=== PATIENT | male | born 1995 | race Caucasian/White ===

== ENCOUNTER 2021-04-25 09:29 | Emergency (ER) | payer BC ==
[2021-04-25] MEDS ORDERED: Sodium Chloride 0.9% 10 ML Syringe FLUSH PRN (10:10)
[2021-04-25] MEDS ORDERED: Metoclopramide 10 MG/2 ML SDV IVPUSH ONE (10:11)
[2021-04-25] MEDS ORDERED: HYDROmorphone 1 MG/ML Syringe IVPUSH ONE (10:11)
--- NOTE | 2021-04-25 10:15 | EDM.PDOC ---
ED HPI GENERAL MEDICAL PROBLEM - General Chief Complaint: Back Pain or Injury Stated Complaint: BACK PAIN Time Seen by Provider: 04/25/21 10:10 Source of Information: Reports: Patient History Limitations: Reports: No Limitations - History of Present Illness INITIAL COMMENTS - FREE TEXT/NARRATIVE: 25-year-old male presents to the ED for evaluation of acute onset of severe low back pain. Patient states he was working out at the gym doing bent over rolls with a barbell when he developed sudden onset of severe pain in his lower back. Now any movement causes severe spasm and severe pain. He is currently lying in the gurney on the opposite direction in the left lateral decubitus position. No previous history of low back injury. No pain rating down his buttocks rating to the lower extremities. No feeling of loss of control of bowel or bladder function. He has not taken anything for pain. He had his drive him to the hospital. Onset: Today, Sudden Onset Date: 04/25/21 Onset Time: 09:05 Duration: Minutes:, Constant Location: Reports: Back Quality: Reports: Ache (Severe diffuse low back pain. Cannot localize to one side being any worse than the other.), Sharp, Stabbing, Other Severity: Severe (Strong spastic component to the pain with any kind of movement. 910 with movement.) Improves with: Reports: Rest ( 2 out of 10 if he lies perfectly still.) Worsens with: Reports: Movement Context: Reports: Exercise (Injury occurred while doing bent over). 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) (None.) Back Pain Score (Numeric/FACES): 10 - Related Data Allergies Allergy/AdvReac Type Severity Reaction Status Date / Time No Known Allergies Allergy Verified 04/25/21 09:38 Home Meds: Home Meds Acetaminophen/oxyCODONE [Percocet 325-5 MG] 1 - 2 each PO Q4H PRN #24 tab 04/25/21 [Rx] Cyclobenzaprine [Flexeril] 10 mg PO TID PRN #12 tab 04/25/21 [Rx] Diclofenac Sodium [Voltaren] 75 mg PO BIDMEALS #16 tab.cr 04/25/21 [Rx] Multivitamin 1 each PO DAILY 04/25/21 [History] predniSONE [Prednisone] 20 mg PO BID #10 tablet 04/25/21 [Rx] Past Medical History - Past Surgical History GI Surgical History: Reports: Appendectomy Social & Family History - Tobacco Use Tobacco Use Status *Q: Never Tobacco User - Caffeine Use Caffeine Use: Reports: Coffee - Recreational Drug Use Recreational Drug Use: No - Living Situation & Occupation Living situation: Reports: Occupation: Employed ED ROS GENERAL - Review of Systems Review Of Systems: See Below Constitutional: Denies: Fever, Chills, Malaise, Weakness, Fatigue, Decreased Appetite, Weight Loss HEENT: Reports: No Symptoms Respiratory: Reports: No Symptoms Cardiovascular: Reports: No Symptoms Endocrine: Reports: No Symptoms GI/Abdominal: Reports: No Symptoms : Reports: No Symptoms Musculoskeletal: Reports: No Symptoms Skin: Reports: No Symptoms Neurological: Reports: No Symptoms Psychiatric: Reports: No Symptoms ED EXAM,LOWER BACK PAIN/INJURY - Physical Exam Exam: See Below Exam Limited By: No Limitations General Appearance: Alert, WD/WN, Moderate Distress, Other (Patient has to lie in the left lateral decubitus position on the gurney upside down. Vital signs show temperature 36.2. Heart rate 83 and sinus. Respiratory to 16 with O2 sats of 98% on room air. BP is 119/63.) Respiratory/Chest: No Respiratory Distress, Lungs Clear, Normal Breath Sounds, No Accessory Muscle Use Cardiovascular: Normal Peripheral Pulses, Regular Rate, Rhythm, No Edema, No Gallop, No Murmur, No Rub GI/Abdominal: Normal Bowel Sounds, Soft, Non-Tender, No Organomegaly, No Mass, Pelvis Stable, Other (Firm abdominal wall due to being well muscled.) Back Exam: Muscle Spasm (Paraspinal muscle spasm appreciated bilaterally lumbar spine worse on the right side as compared to the left. On the right side it does travel up to thoracic 10 level.), Paraspinal Tenderness (Worse over lumbar 3 to lumbar 5 bilaterally. Mild tenderness in the left sacroiliac joint as well.), Other Extremities: Normal Inspection, Normal Range of Motion, Non-Tender, No Pedal Ed kate Neurological: Alert, Normal Mood/Affect, Normal Dorsiflexion, CN II-XII Intact, Normal Gait, Normal Reflexes, No Motor/Sensory Deficits, Oriented x 3 Psychiatric: Normal Affect, Normal Mood Skin Exam: Warm, Dry, Intact, Normal Color, No Rash Course - Vital Signs Last Recorded V/S: Last Vital Signs Temp 36.2 C 04/25/21 09:36 Pulse 83 04/25/21 09:36 Resp 16 04/25/21 09:36 BP 119/63 04/25/21 09:36 Pulse Ox 98 04/25/21 09:36 - Orders/Labs/Meds Orders: Active Orders 24 hr Category Date Time Status Peripheral IV Care [RC] . DIRECTED Care 04/25/21 10:10 Active Lumbar Spine wo Cont [CT] Stat Exams 04/25/21 10:47 Taken Ketorolac [Toradol] Med 04/25/21 11:45 Active 30 mg IVPUSH ONETIME Sodium Chloride 0.9% [Saline Flush] Med 04/25/21 10:10 Active 10 ml FLUSH ASDIRECTED PRN Peripheral IV Insertion Adult [OM.PC] Stat Oth 04/25/21 10:10 Ordered Medication Orders Ketorolac Tromethamine (Ketorolac 30 Mg/Ml Sdv) 30 mg IVPUSH ONETIME SOTERO Last Admin: 04/25/21 11:42 Dose: 30 mg Documented by: CAIT Sodium Chloride (Sodium Chloride 0.9% 10 Ml Syringe) 10 ml FLUSH ASDIRECTED PRN PRN Reason: Keep Vein Open Last Admin: 04/25/21 10:23 Dose: 10 ml Documented by: CLARI Meds: Medications Generic Name Dose Route Start Last Admin Trade Name Freq PRN Reason Stop Dose Admin Ketorolac Tromethamine 30 mg 04/25/21 11:45 04/25/21 11:42 Ketorolac 30 Mg/Ml Sdv IVPUSH 30 mg ONETIME SOTERO Administration Sodium Chloride 10 ml 04/25/21 10:10 04/25/21 10:23 Sodium Chloride 0.9% 10 Ml Syringe FLUSH 10 ml ASDIRECTED PRN Administration Keep Vein Open Discontinued Medications Generic Name Dose Route Start Last Admin Trade Name Freq PRN Reason Stop Dose Admin Diazepam 5 mg 04/25/21 10:10 04/25/21 10:24 Diazepam 10 Mg/2 Ml Syringe IVPUSH 04/25/21 10:11 5 mg ONETIME ONE Administration Hydromorphone HCl 1 mg 04/25/21 10:11 04/25/21 10:23 Hydromorphone 1 Mg/Ml Syringe IVPUSH 04/25/21 10:12 1 mg ONETIME ONE Administration Hydromorphone HCl 0.5 mg 04/25/21 11:31 04/25/21 11:39 Hydromorphone 0.5 Mg/0.5 Ml Syringe IVPUSH 04/25/21 11:32 0.5 mg ONETIME ONE Administration Ketorolac Tromethamine Confirm 04/25/21 11:47 04/25/21 13:23 Ketorolac 30 Mg/Ml Sdv Administered 04/25/21 11:48 Not Given Dose 30 mg .ROUTE .STK-MED ONE Methylprednisolone Sodium Succinate 125 mg 04/25/21 11:37 04/25/21 11:42 Methylprednisolone Sodium Succinate 125 Mg/2 Ml Sdv IVPUSH 04/25/21 11:38 125 mg ONETIME ONE Administration Metoclopramide HCl 10 mg 04/25/21 10:11 04/25/21 10:22 Metoclopramide 10 Mg/2 Ml Sdv IVPUSH 04/25/21 10:12 10 mg ONETIME ONE Administration - Radiology Interpretation Free Text/Narrative:: 25-year-old male presents to the ED with acute onset of severe low back pain that occurred while doing bent over rows with a barbell at the gym. He came almost immediately to the hospital with his driving him due to severe pain in his lower back. States it is so bad that he cannot make any movement at all without severe stabbing pain that would drop him to the floor. No past history of back problems. No radiculopathy into either lower extremity at this time. Plan pain management. IV Dilaudid 1 mg with Valium 5 mg IV and Reglan 10 mg IV. Plan will be to have lumbar spine x-rays carried out when she can lie comfortably on the gurney. - Re-Assessments/Exams Free Text/Narrative Re-Assessment/Exam: 04/25/21 10:48 Patient has been able to lay on the gurney in a normal fashion. States as long as he moves his pretty well pain-free at this time. He is fairly drowsy from the effects of medication. He believes he can tolerate imaging of his lower back at this time. He will have CT scan of his lower back performed without contrast 04/25/21 11:36 CT scan of the lumbar spine has been completed without contrast. It reveals no significant disc protrusion or spinal canal stenosis or significant neuroforaminal stenosis at any of the lumbar vertebrae levels. Patient was so advised. He is likely going to be at least a week till he can return to work. I will give him a note in this regard. He still has significant pain even transferring from the bed to the CT scanner. We will give him Toradol 30 mg IV with Dilaudid 0.5 mg IV for further pain relief. Also will give him a dose of Solu-Medrol 125 mg IV. The plan will be to discharge him home on Percocet tabs 5/325 mg strength 1 or 2 every 4-6 hours necessary for pain relief. Prednisone 20 mg twice daily for 5 days with breakfast and supper. Voltaren 75 mg by mouth twice daily for the next 8 days. Flexeril 10 mg every 8 hours as needed for muscle spasm relief. Advise follow-up with physician later this week i.e. Monday to make sure he is good enough to return to work by Monday next week. Departure - Departure Time of Disposition: 12:02 Disposition: Home, Self-Care 01 Condition: Fair Clinical Impression: Acute myofascial strain of lumbar region Qualifiers: Encounter type: initial encounter Qualified Code(s): S39.012A - Strain of muscle, fascia and tendon of lower back, initial encounter - Discharge Information *PRESCRIPTION DRUG MONITORING PROGRAM REVIEWED*: Not Applicable *COPY OF PRESCRIPTION DRUG MONITORING REPORT IN PATIENT HARSH: Not Applicable Prescriptions: Cyclobenzaprine [Flexeril] 10 mg PO TID PRN #12 tab PRN Reason: Muscle spasm lower back Acetaminophen/oxyCODONE [Percocet 325-5 MG] 1 - 2 each PO Q4H PRN #24 tab PRN Reason: Pain relief predniSONE [Prednisone] 20 mg PO BID #10 tablet Diclofenac Sodium [Voltaren] 75 mg PO BIDMEALS #16 tab.cr Instructions: Back Injury Prevention, [id number], Lumbosacral Strain, Low Back Strain Rehab-SportsMed Referrals: PCP,None [Primary Care Provider] - Forms: ED Department Discharge, ED Return to Work/School Form Additional Instructions: Evaluation in the emergency room this morning in regards to acute onset of severe low back pain while doing bent over rows at the gym this morning. No evidence of radiculopathy which means pain radiating down the buttock or the leg which would suggest nerve root compression from ruptured disc. CT scan confirms no evidence of disc herniation or fractures in the lumbar spine. Marked par aspinal muscle spasm appreciated on both sides of your back worse slightly on the right side as compared to the left. Point of maximal tenderness is primarily over the L4-L5 facet joints bilaterally. Injury is mostly muscular with severe spasm with movement secondary to tear of the paraspinal muscle. You were treated in the emergency room with intravenous Valium 5 mg and Dilaudid 1 mg IV for pain relief as well as an antinausea medication. Treatment at home is activity as tolerated. Obviously very limited bending over or lifting, pushing, pulling. Pain medication is to be Percocet tabs 5/325 mg strength 1 or 2 tablets every 4-6 hours necessary for pain relief over the next 2 to 3 days. Note these medication can cause constipation and I would suggest picking up some MiraLAX powder and taking 1 packet or 17 g once daily mixed with beverage of choice to prevent constipation while on the pain medication. Other medication is Voltaren 75 mg twice daily with food which is an anti-inflammatory to relieve pain and inflammation in the facet joints. Prednisone 20 mg twice daily for 5 days again used with breakfast and supper to take inflammation of the facet joints which we will in turn relieve the muscle spasm. Flexeril 10 mg may be taken every 8 hours as needed for muscle spasm relief which you may well need over the next 2 to 3 days until the muscle spasm settles down with the anti- inflammatory treatment. Often we reduce this to once daily at bedtime as it does cause some degree of sedation particular when mixed with the pain medication. Off work for the next week. If still struggling with pain by Monday this next week you should have follow-up with personal physician to make sure that you are ready to return to work by Monday next week. I would anticipate that you would be 80 to 90% better in 5 days time. Sepsis Event Note (ED) - Evaluation Sepsis Screening Result: No Definite Risk - Focused Exam Vital Signs: Vital Signs Temp Pulse Resp BP Pulse Ox 04/25/21 09:36 36.2 C 83 16 119/63 98 - My Orders Last 24 Hours: My Active Orders 04/25/21 10:10 Peripheral IV Care [RC] . DIRECTED Sodium Chloride 0.9% [Saline Flush] 10 ml FLUSH ASDIRECTED PRN Peripheral IV Insertion Adult [OM.PC] Stat 04/25/21 10:47 Lumbar Spine wo Cont [CT] Stat 04/25/21 11:45 Ketorolac [Toradol] 30 mg IVPUSH ONETIME - Assessment/Plan Last 24 Hours: My Active Orders 04/25/21 10:10 Peripheral IV Care [RC] . DIRECTED Sodium Chloride 0.9% [Saline Flush] 10 ml FLUSH ASDIRECTED PRN Peripheral IV Insertion Adult [OM.PC] Stat 04/25/21 10:47 Lumbar Spine wo Cont [CT] Stat 04/25/21 11:45 Ketorolac [Toradol] 30 mg IVPUSH ONETIME
[2021-04-25] MEDS ORDERED: HYDROmorphone 0.5 MG/0.5 ML Syringe IVPUSH ONE (11:31)
[2021-04-25] MEDS ORDERED: methylPREDNISolone Sodium Succinate 125 MG/2 ML SDV IVPUSH ONE (11:37)
[2021-04-25] MEDS ORDERED: Ketorolac 30 MG/ML SDV IVPUSH SCH (11:45)
[2021-04-25] MEDS ORDERED: Ketorolac 30 MG/ML SDV ONE (11:47)
--- NOTE | 2021-04-25 19:07 | CT ---
CT lumbar spine Technique: Multiple axial sections were obtained through the lower T11 level inferiorly through the L5-S1 disc. Reconstructed coronal and sagittal images were obtained. No intravenous or oral contrast were utilized. Comparison: No prior lumbar spine imaging is available. Findings: Vertebral body heights and disc spaces are maintained within the lumbar spine. No bony central or bony neural foraminal stenosis is seen. No acute fracture or subluxation is seen. Impression: 1. Nothing acute is seen on CT study of the lumbar spine. Diagnostic code #1
== END 2021-04-25 12:47 | disposition home or self-care (01) ==
LOC: JD.ED 09:29
DX: S39.012A Strain of muscle, fascia and tendon of lower back, initial encounter (principal); X50.9XXA Other and unspecified overexertion or strenuous movements or postures, initial encounter; Y99.0 Civilian activity done for income or pay
CPT/HCPCS: 72131; 72131-26; 96374; 96375; 96376; 99283; 99283-25; J1170; J1885; J2765; J2930; J3360